=== PATIENT | male | born 1995 | race Caucasian/White ===

== ENCOUNTER → 2023-12-17 | Outpatient (CLI) | payer OTHER | END | disposition home or self-care (01) | LOC: RADPV 13:51 | PROVIDERS: ATTEND Chiropractor | DX: R07.9 Chest pain, unspecified (principal) | CPT/HCPCS: 93306 ==

== ENCOUNTER → 2024-01-09 | Outpatient (CLI) | payer OTHER | END | disposition home or self-care (01) | LOC: RADMN 10:44 | PROVIDERS: ATTEND Chiropractor | DX: R07.9 Chest pain, unspecified (principal) | CPT/HCPCS: 93005 ==